=== PATIENT | male | born 1960 | race Caucasian/White ===

== ENCOUNTER 2017-08-22 10:49 | Emergency (ER) | payer OTHER ==
[~2017-08-22] VITALS: Ht 165.1 cm; Wt 68.0 kg
[~2017-08-22 10:49] MED LIST: LEVAQUIN750 MG PO
== END 2017-08-22 12:29 | disposition home or self-care (01) ==
LOC: ED 10:49
DX: T40.1X1A Poisoning by heroin, accidental (unintentional), initial encounter (principal); F15.10 Other stimulant abuse, uncomplicated; Z88.1 Allergy status to other antibiotic agents; Z79.899 Other long term (current) drug therapy
CPT/HCPCS: 99283

== ENCOUNTER 2019-09-09 06:50 | Day surgery (SDC) | payer OTHER ==
[~2019-09-09] VITALS: Ht 165.1 cm; Wt 73.9 kg
--- NOTE | ~2019-09-09 | OR ---
[facility] [address], [place] [address] Draft DATE OF OPERATION: 09/09/2019 SURGEON: Melvin Thakur MD PREOPERATIVE DIAGNOSIS: Septal deformity. POSTOPERATIVE DIAGNOSIS: Septal deformity. PROCEDURE: Septoplasty. ANESTHESIA: General LMA; TUAN, Zach. PREOPERATIVE HISTORY: Jose Manuel is a 58-year-old male with significant septal deformity causing breathing difficulties, nasal obstruction, multiple history of trauma to the nose, unresponsive to appropriate medications. He is taken to the operating for the above-mentioned procedures. PROCEDURE AND FINDINGS: After informed consent, the patient was taken to the operating room, and placed in the supine position, where general LMA anesthesia was induced. The patient and procedure were verified. The patient received preoperative intravenous Ancef and intranasal oxymetazoline. Headlight speculum exam of the nasal cavity showed septal deformity, significantly deviated on the right posteriorly, on the left anteriorly, significantly obstructive bilaterally. The septal mucosa was injected with 1% lidocaine with epi on each side, total of 5 mL. A left hemitransfixion incision was made. Submucoperichondrial pocket elevated on the left. Incision was made through the septal cartilage to the right side about 1 cm posterior to the mucosal incision and submucoperichondrial pocket elevated on the right. All deviated septal bone and cartilage were then removed with a swivel knife Umer, septum was medialized, airways improved afterwards. Minimal bleeding. A small tear of posterior inferior on the right side. No tears on the left. Incision was closed with 4-0 interrupted chromic. Packing was placed. Equal amount of Merocel 1 piece is trimmed coated with Neosporin, one on each side, tied anteriorly over a pad. Pharynx was suctioned and cleared of blood secretions. The patient was then awakened, extubated, and transported to recovery room in good condition. No complications. PATIENT NAME: JOSE MANUEL ALBERTO OPERATIVE REPORT DATE OF : 58 REPORT #: [id number] PHYSICIAN: MELVIN THAKUR MD PCP: NO PRIMARY CARE PHYSICIAN REPORT IS CONFIDENTIAL AND NOT TO BE RELEASED WITHOUT AUTHORIZATION [address] [address] [place] BLOOD LOSS: Minimal. SPECIMEN: No specimen. DRAINS: No drains. PACKING: One piece of Merocel, each nostril. Melvin Thakur MD GC/MODL /[id number] Copies: ~ PATIENT NAME: JOSE MANUEL ALBERTO OPERATIVE REPORT DATE OF : 58 REPORT #: [id number] PHYSICIAN: MELVIN THAKUR MD PCP: NO PRIMARY CARE PHYSICIAN REPORT IS CONFIDENTIAL AND NOT TO BE RELEASED WITHOUT AUTHORIZATION
[~2019-09-09 06:50] MED LIST changes: +LISINOPRIL5 MG PO
--- NOTE | 2019-09-09 09:11 | NUR ---
09/09/19 0911 Mayra Mar 0901-PATIENT ARRIVED TO PACU ON 6L MASK NOANROUSABLE. RN DOING JAW THRUST TO MAINTAIN OPEN AIRWAY. SR. DRESSING ON NOSE CDI PACKED. 0906-PATIENT AROUSING TO VERBAL STIMULI MAINTAINING OWN AIRWAY 6L MASK RR EVEN. SR. DENIES PAIN OR NAUSEA. VERY DROWSY DOZES BACK TO SLEEP.
--- NOTE | 2019-09-09 11:57 | NUR ---
PATIENT URINATED WITHOUT COLLECTING
--- NOTE | 2019-09-09 13:55 | NUR ---
PT TAKEN TO OR, FRIEND WAITING IN RM. SEEMED RELAXED HAD NO QUESTIONS. GAVE BLESSING AND WILL FOLLOW NEEDED
== END 2019-09-09 18:00 | disposition home or self-care (01) ==
LOC: OPS 06:50 → DS 06:50 → OPS 08:00 → DS 08:00 → OPS 18:00
PROVIDERS: Otolaryngology
PROC: 09BM0ZZ Excision of Nasal Septum, Open Approach (ICD-10-PCS; principal; 2019-09-09 08:00)
DX: J34.2 Deviated nasal septum (principal); J34.89 Other specified disorders of nose and nasal sinuses
CPT/HCPCS: 00160; J0690; J1885; J2001; J2405; J2704; J3010; J7121

== ENCOUNTER 2020-01-15 16:21 | Emergency (ER) | payer OTHER ==
[~2020-01-15] VITALS: Ht 165.1 cm; Wt 73.9 kg
[2020-01-15] MEDS ORDERED: KEFLEX500 MG PO (18:34)
== END 2020-01-15 18:35 | disposition home or self-care (01) ==
LOC: ED 16:21
DX: L02.512 Cutaneous abscess of left hand (principal); Z79.899 Other long term (current) drug therapy; Z88.1 Allergy status to other antibiotic agents
CPT/HCPCS: 73130; 80048; 83605; 85025; 96365; 99283-25; J0696

== ENCOUNTER 2024-10-06 22:09 | Emergency (ER) | payer OTHER ==
[~2024-10-06] VITALS: Ht 165.1 cm; Wt 80.0 kg
[~2024-10-06 22:09] MED LIST changes: +KEFLEX500 MG PO
[2024-10-06] MEDS ORDERED: ATORVASTATIN CA20 MG PO (22:39)
[2024-10-06] MEDS ORDERED: LIDOCAINE/RACEPINEP/TETRACAINE 3 ML SYR TOP ONE (22:45)
[2024-10-06] MEDS ORDERED: DIPHTH,PERTUSS(ACELL),TET VAC 0.5 ML SYRINGE IM ONE (23:30)
[2024-10-06 23:38] VITALS: BP 133/77
[2024-10-07] MEDS ORDERED: LISINOPRIL30 MG PO (10:56)
== END 2024-10-06 23:39 | disposition home or self-care (01) ==
LOC: ED 22:09
DX: S01.81XA Laceration without foreign body of other part of head, initial encounter (principal); Z88.1 Allergy status to other antibiotic agents; Z79.899 Other long term (current) drug therapy; W25.XXXA Contact with sharp glass, initial encounter
CPT/HCPCS: 12013; 90471; 90715; 99283-25

== ENCOUNTER 2024-10-28 10:10 | Emergency (ER) | payer OTHER ==
[~2024-10-28] VITALS: Ht 165.1 cm; Wt 73.2 kg
[~2024-10-28 10:10] MED LIST changes: +AMOX TR-K CLV1 EAC1 PO; +ASPIRIN81 MG PO; +ATORVASTATIN CA20 MG PO; +LISINOPRIL30 MG PO
--- OUTSIDE RECORDS SUMMARY | 2024-10-28 10:15 | XMS ---
PreManage Notification: ИРИНА ALBERTO Security Clinical Systems Educator Events No recent Security Events currently on file CRITERIA MET - [facility] [place] - 2 Visits in 30 Days CARE PROVIDERS -, [facility] Dentist: Wax Bleacher [facility] PHONE: [phone] -Elysia- Dentist: Wax Bleacher [facility] PHONE: [phone] [facility] Current PHONE: [phone] Jose has no Care Guidelines for this patient. E.Graciela VISIT COUNT (12 MO.) 4 JACKELYN Metcalf TOTAL 4 NOTE: Visits indicate total known visits. ED/UCC VISIT TRACKING (12 MO.) 10/28/2024 10:10 JACKELYN Bojorquez OR TYPE: Emergency COMPLAINT: - LT ARM LACERATION 10/20/2024 23:51 JACKELYN Bojorquez OR TYPE: Emergency COMPLAINT: - OD INTENTIONAL 10/07/2024 10:47 JACKELYN Bojorquez OR TYPE: Emergency COMPLAINT: - MEDICAL CLEARANCE DIAGNOSES: - Allergy status to other antibiotic agents - Other tax advisor (current) drug therapy - Suicidal ideations 10/06/2024 22:10 JACKELYN Bojorquez OR TYPE: Emergency COMPLAINT: - FALL DIAGNOSES: - Allergy status to other antibiotic agents - Contact with sharp glass, initial encounter - Laceration without foreign body of other part of head, initial encounter - Other fdc (current) drug therapy INPATIENT VISIT TRACKING (12 MO.) 10/21/2024 09:35 JACKELYN Bojorquez OR TYPE: Critical Care COMPLAINT: - DRUG OVERDOSE DIAGNOSES: - Acute kidney failure, unspecified - Acute kidney failure, unspecified - Alcohol abuse, uncomplicated - Alcohol abuse, uncomplicated - Essential (primary) hypertension - Essential (primary) hypertension - Hyperlipidemia, unspecified - Hyperlipidemia, unspecified - Hypokalemia - Hypokalemia - Hypomagnesemia - Hypomagnesemia - Other disorders of phosphorus metabolism - Other disorders of phosphorus metabolism - Other tax advisor (current) drug therapy - Other tax advisor (current) drug therapy - Pleural effusion, not elsewhere classified - Pleural effusion, not elsewhere classified - Pneumonitis due to inhalation of food and vomit - Pneumonitis due to inhalation of food and vomit - Poisoning by methamphetamines intentional self-harm, initial encounter - Rhabdomyolysis - Rhabdomyolysis [email or web address]
[2024-10-28] MEDS ORDERED: CEPHALEXIN500 M1 PO (10:33)
[2024-10-28 11:45] VITALS: BP 159/93
== END 2024-10-28 11:40 | disposition home or self-care (01) ==
LOC: ED 10:10
DX: S51.812A Laceration without foreign body of left forearm, initial encounter (principal); W26.0XXA Contact with knife, initial encounter; Z79.82 Long term (current) use of aspirin; Z79.899 Other long term (current) drug therapy
CPT/HCPCS: 12034; 99284-25